=== PATIENT | female | born 1940 | race Caucasian/White ===

== ENCOUNTER → 2017-04-24 | Outpatient (CLI) | payer MEDICARE ==
[~2017-04-24] MED LIST: AEC81 PO; ALBU8.5H8 IH; CELE200 PO; CETI-101 PO; EQUATE ARTHRITIS PO; ERGO500014 PO; FLUO-125 PO; FLUT1AER IH; FOLI-74 PO; FURO20TA4 PO; HYDR-2132 PO; INSULIN PUMP SQ; LOSA100T29 PO; MECL-111 PO; MONT10TA21 PO; NEXIUM PO; PIND10TA2 PO; ROSU20TA PO; VITA150T PO
== END | disposition home or self-care (01) ==
LOC: SHCH 13:47
PROVIDERS: ATTEND Internal Medicine Cardiovascular Disease
DX: I87.2 Venous insufficiency (chronic) (peripheral) (principal)
CPT/HCPCS: 93970

== ENCOUNTER → 2017-07-10 | Outpatient (CLI) | payer MEDICARE | END | disposition home or self-care (01) | LOC: SHCH 09:06 | PROVIDERS: ATTEND Internal Medicine Cardiovascular Disease | DX: I27.20 Pulmonary hypertension, unspecified (principal); G47.30 Sleep apnea, unspecified | CPT/HCPCS: 93306 ==

== ENCOUNTER → 2019-02-23 | Outpatient (CLI) | payer MEDICARE ==
[~2019-02-23] MED LIST changes: -LOSA100T29 PO; +LOSA100T58 PO; -ROSU20TA PO; +ROSU20TA23 PO
== END | disposition home or self-care (01) ==
LOC: LAB 15:24
PROVIDERS: ATTEND Internal Medicine Gastroenterology
DX: R19.7 Diarrhea, unspecified (principal)
CPT/HCPCS: 87507

== ENCOUNTER → 2020-03-14 | Outpatient (CLI) | payer MEDICARE ==
[~2020-03-14] MED LIST changes: -CETI-101 PO; +CETI-89 PO; -FLUO-125 PO; +FLUO10CA23 PO; -MECL-111 PO; +MECL-160 PO
== END | disposition home or self-care (01) ==
LOC: RAH 14:30
PROVIDERS: ATTEND Physical Medicine & Rehabilitation
DX: M47.812 Spondylosis without myelopathy or radiculopathy, cervical region (principal); M48.02 Spinal stenosis, cervical region; M25.78 Osteophyte, vertebrae
CPT/HCPCS: 72141

== ENCOUNTER → 2020-03-21 | Outpatient (CLI) | payer MEDICARE | END | disposition home or self-care (01) | LOC: RAH 07:46 | PROVIDERS: ATTEND Internal Medicine Gastroenterology | DX: N28.1 Cyst of kidney, acquired (principal); K76.0 Fatty (change of) liver, not elsewhere classified; Z90.49 Acquired absence of other specified parts of digestive tract | CPT/HCPCS: 76700 ==

== ENCOUNTER → 2020-08-04 | Outpatient (CLI) | payer MEDICARE | END | disposition home or self-care (01) | LOC: RAH 13:03 | PROVIDERS: ATTEND Internal Medicine Critical Care Medicine | DX: J47.9 Bronchiectasis, uncomplicated (principal) | CPT/HCPCS: 71250 ==

== ENCOUNTER → 2020-10-06 | Outpatient (CLI) | payer MEDICARE | END | disposition home or self-care (01) | LOC: RAH 15:00 | PROVIDERS: ATTEND Psychiatry & Neurology Neurology | DX: I67.82 Cerebral ischemia (principal); G31.89 Other specified degenerative diseases of nervous system; R42 Dizziness and giddiness | CPT/HCPCS: 70450 ==

== ENCOUNTER → 2020-10-10 | Outpatient (CLI) | payer MEDICARE | END | disposition home or self-care (01) | LOC: RAH 14:44 | PROVIDERS: ATTEND Physical Medicine & Rehabilitation | DX: M79.601 Pain in right arm (principal); M25.511 Pain in right shoulder; Z96.611 Presence of right artificial shoulder joint | CPT/HCPCS: 73030; 73090 ==

== ENCOUNTER → 2020-10-19 | Outpatient (CLI) | payer MEDICARE ==
[~2020-10-19] MED LIST changes: +GADOTERATE MEGLUMINE 10 MMOL/20 ML VIAL IV ONE
== END | disposition home or self-care (01) ==
LOC: RAH 08:42
PROVIDERS: ATTEND Psychiatry & Neurology Neurology
DX: R42 Dizziness and giddiness (principal); D36.10 Benign neoplasm of peripheral nerves and autonomic nervous system, unspecified; I67.82 Cerebral ischemia
CPT/HCPCS: 70553; A9575

== ENCOUNTER 2021-01-12 12:17 | Inpatient (IN) | payer MEDICARE ==
[~2021-01-12] VITALS: Ht 160 cm; Wt 87.0 kg
[~2021-01-12 12:17] MED LIST changes: -GADOTERATE MEGLUMINE 10 MMOL/20 ML VIAL IV ONE
[2021-01-12] MEDS ORDERED: SOLU-MEDROL 125MG VIAL IVP ONE (13:00)
[2021-01-12 14:07] VITALS: BP 131/64
[2021-01-12 14:50] LABS: BASOPHILS % (AUTO) 0.8 % (0.0-5.0); EOSINOPHILS % (AUTO) 1.9 % (0.0-8.0); HEMATOCRIT 35.8 % (36-48); LYMPHOCYTES % (AUTO) 22.9 % (21.0-51.0); MEAN CORPUSCULAR HGB CONC 33.2 g/dL (32.0-36.0); MEAN CORPUSCULAR VOLUME 111.2 fL (79-99); MONOCYTES % (AUTO) 9.5 % (3.0-13.0); NEUTROPHILS % (AUTO) 64.4 % (40.0-77.0); PLATELET COUNT (AUTO) 322 K/uL (130-400); RED BLOOD CELL COUNT(AUTO) 3.22 MIL/uL (4.00-5.50); RED CELL DISTRIBUTION WIDTH 12.6 % (11.0-15.5); WHITE BLOOD COUNT (AUTO) 3.7 K/uL (4.8-10.8)
[2021-01-12 14:55] LABS: CREATININE 1.1 mg/dL (0.5-1.5); POTASSIUM 3.8 mmol/L (3.5-5.1)
[2021-01-12 15:00] LABS: ALBUMIN 3.3 g/dL (3.5-5.0); BILIRUBIN,TOTAL 0.7 mg/dL (0.2-1.0); TOTAL PROTEIN, SERUM 6.6 g/dL (6.0-8.3)
[2021-01-12 15:11] LABS: B-TYPE NATRIURETIC PEPTIDE 73 pg/mL (0-100)
[2021-01-12 15:24] LABS: APPEARANCE,URINE Clear (CLEAR); BILIRUBIN,URINE Negative (NEGATIVE); COLOR,URINE Yellow (YELLOW); GLUCOSE, URINE (UA) Negative (NEGATIVE); KETONES,URINE Trace mg/dL (NEGATIVE); LEUKOCYTE ESTERASE ,URINE Negative (NEGATIVE); NITRATE,URINE Negative (NEGATIVE); OCCULT BLOOD,URINE Negative (NEGATIVE); PH,URINE 5.5 (5.0-8.0); PROTEIN,URINE Negative (NEGATIVE)
[2021-01-12 15:35] LABS: ABG HCO3 26.3 mmol/L (21.0-28.0); ABG OXYGEN SATURATION 97.4 % (95.0-99.0); ABG PCO2 49 mmHg (32-45)
[2021-01-12] MEDS ORDERED: 0.9% NACL 250ML IVPB ONE (16:00)
[2021-01-12] MEDS ORDERED: CEFTRIAXONE 1G VIAL IVP ONE (16:00)
[2021-01-12] MEDS ORDERED: IPRATROPIUM/ALBUTEROL SULFATE 3 ML SOLUTION IH ONE (16:00)
[2021-01-12] MEDS ORDERED: AZITHROMYCIN 500MG VIAL IVPB ONE (16:00)
[2021-01-12] MEDS ORDERED: ZOLPIDEM TARTRATE 5 MG TAB PO PRN (16:30)
[2021-01-12] MEDS: CEFTRIAXONE 1G VIAL IV SCH (16:30)
[2021-01-12] MEDS ORDERED: ACETAMINOPHEN 325 MG TAB PO PRN ×2 (16:30)
[2021-01-12] MEDS ORDERED: ONDANSETRON 4MG INJ IV PRN (16:30)
[2021-01-12] MEDS ORDERED: LACTULOSE 20 GM/30 ML UDCUP PO PRN (16:30)
[2021-01-12] MEDS ORDERED: NITROGLYCERIN 0.4 MG SL TAB SL PRN (16:30)
[2021-01-12] MEDS ORDERED: HYDRALAZINE 20MG/ML VIAL IV PRN (16:30)
[2021-01-12] MEDS ORDERED: AZITHROMYCIN 500MG+NS 250ML 250 ML IV ONE (16:41)
[2021-01-12 17:20] LABS: HEMOGLOBIN A1C 6.7 % (4.0-6.0)
[2021-01-12] MEDS: FAMOTIDINE 20MG TAB PO SCH (17:21)
[2021-01-12 18:01] VITALS: BP 134/74
[2021-01-12] MEDS: IPRATROPIUM 0.5 MG/2.5 ML INH IH SCH ×2 (18:26→22:04)
[2021-01-12] MEDS: ALBUTEROL 0.083% 2.5 MG/3 ML INH IH SCH ×2 (18:26→22:04)
[2021-01-12] MEDS: INSULIN HUMULIN R 100 UNIT/ML 3ML SQ SCH ×2 (18:30→20:40)
[2021-01-12] MEDS: DOXYCYCLINE 100MG+NS 250ML 250 ML IV SCH (18:50)
[2021-01-12 19:28] VITALS: BP 144/74
[2021-01-12] MEDS: SOLU-MEDROL 40MG VIAL IVP SCH (20:39)
[2021-01-12] MEDS: INSULIN GLARGINE 100 UNITS/ML 10 ML VIAL SQ SCH (20:40)
[2021-01-13] VITALS (7 sets, daily range): BP systolic 124–163; BP diastolic 59–78
[2021-01-13] MEDS: IPRATROPIUM 0.5 MG/2.5 ML INH IH SCH ×5 (02:22→23:26)
[2021-01-13] MEDS: ALBUTEROL 0.083% 2.5 MG/3 ML INH IH SCH ×6 (02:22→23:26)
[2021-01-13] MEDS: DOXYCYCLINE 100MG+NS 250ML 250 ML IV SCH ×2 (05:22→18:03)
[2021-01-13] MEDS: INSULIN HUMULIN R 100 UNIT/ML 3ML SQ SCH ×6 (08:29→21:01)
[2021-01-13 08:47] LABS: HEMATOCRIT 37.1 % (36-48); LYMPHOCYTES % (AUTO) 7.3 % (21.0-51.0); MEAN CORPUSCULAR HEMOGLOBIN 36.7 pg (27.0-33.0); MEAN CORPUSCULAR HGB CONC 33.2 g/dL (32.0-36.0); MEAN CORPUSCULAR VOLUME 110.7 fL (79-99); MONOCYTES % (AUTO) 1.5 % (3.0-13.0); NEUTROPHILS % (AUTO) 90.7 % (40.0-77.0); PLATELET COUNT (AUTO) 299 K/uL (130-400); RED BLOOD CELL COUNT(AUTO) 3.35 MIL/uL (4.00-5.50); RED CELL DISTRIBUTION WIDTH 12.6 % (11.0-15.5); WHITE BLOOD COUNT (AUTO) 7.5 K/uL (4.8-10.8)
[2021-01-13 08:55] LABS: % IRON SATURATION 18.1 % (22-44)
[2021-01-13] MEDS ORDERED: LISINOPRIL 10 MG TABLET PO SCH (09:00)
[2021-01-13] MEDS: FAMOTIDINE 20MG TAB PO SCH (09:00)
[2021-01-13 09:12] LABS: B-TYPE NATRIURETIC PEPTIDE 199 pg/mL (0-100)
[2021-01-13 09:29] LABS: ALANINE AMINOTRANSFERASE 40 U/L (12-78); ALBUMIN 3.4 g/dL (3.5-5.0); ASPARTATE AMINOTRANSFERASE 59 U/L (10-37); BILIRUBIN,TOTAL 0.6 mg/dL (0.2-1.0); CARBON DIOXIDE 28 mmol/L (21-32); CHLORIDE 105 mmol/L (101-111); CREATININE 0.7 mg/dL (0.5-1.5); GLOMERULAR FILTR. RATE CALC 86 mL/min (>60); GLUCOSE,RANDOM 380 mg/dL (70-105); SODIUM SERUM 140 mmol/L (136-145); THYROID STIMULATING HORMONE 0.41 uIU/mL (0.36-3.74); UREA NITROGEN, BLOOD 18 mg/dL (7-18)
[2021-01-13 10:39] LABS: ABG BASE EXCESS 0.1 mmol/L (-2.0-3.0); ABG HCO3 24.4 mmol/L (21.0-28.0); ABG OXYGEN SATURATION 97.5 % (95.0-99.0); ABG PCO2 39 mmHg (32-45)
[2021-01-13] MEDS: ENOXAPARIN SODIUM 40 MG/0.4 ML SYRINGE SQ SCH (13:09)
[2021-01-13] MEDS: SOLU-MEDROL 40MG VIAL IVP SCH ×2 (13:09→20:51)
[2021-01-13] MEDS ORDERED: GUAIFENESIN-DM 200/20 MG 10 ML PO PRN (13:30)
[2021-01-13] MEDS ORDERED: LOSA25TA41 PO (15:18)
[2021-01-13] MEDS ORDERED: METH-811 PO (15:18)
[2021-01-13] MEDS ORDERED: INSNOV SQ (15:18)
[2021-01-13] MEDS ORDERED: LIRA0.6P SQ (15:18)
[2021-01-13] MEDS ORDERED: ROSU20TA31 PO (15:18)
[2021-01-13] MEDS ORDERED: OMEP40CA21 PO (15:18)
[2021-01-13] MEDS ORDERED: CELE-84 PO (15:18)
[2021-01-13] MEDS ORDERED: MONT10TA32 PO (15:18)
[2021-01-13] MEDS ORDERED: HYDR500C2 PO (15:18)
[2021-01-13] MEDS ORDERED: FURO40TA5 PO (15:18)
[2021-01-13] MEDS ORDERED: FLUO10TA3 PO (15:18)
[2021-01-13] MEDS ORDERED: ERGO500093 PO (15:18)
[2021-01-13] MEDS ORDERED: CETI10TA57 PO (15:18)
[2021-01-13] MEDS ORDERED: ASPI-1197 PO (15:18)
[2021-01-13] MEDS ORDERED: CARV6.25 PO (15:18)
[2021-01-13] MEDS: CEFTRIAXONE 1G VIAL IV SCH (18:03)
[2021-01-13] MEDS: MONTELUKAST SODIUM 10 MG TAB PO SCH (18:06)
[2021-01-13] MEDS ORDERED: LIDOCAINE 5% TOPICAL PATCH TP SCH (19:00)
[2021-01-13] MEDS: BUDESONIDE 0.5 MG/2 ML INH IH SCH (19:18)
[2021-01-13] MEDS ORDERED: IOHEXOL 350 MG/ML 100ML INFUS..BTL IV ONE (20:34)
[2021-01-13] MEDS: ATORVASTATIN 40 MG TABLET PO SCH (20:49)
[2021-01-13] MEDS: CARVEDILOL 3.125 MG TABLET PO SCH (20:50)
[2021-01-13] MEDS: FUROSEMIDE 40 MG TABLET PO SCH (20:51)
[2021-01-13] MEDS: INSULIN GLARGINE 100 UNITS/ML 10 ML VIAL SQ SCH (21:01)
[2021-01-14] MEDS: IPRATROPIUM 0.5 MG/2.5 ML INH IH SCH ×5 (02:56→22:50)
[2021-01-14] MEDS: ALBUTEROL 0.083% 2.5 MG/3 ML INH IH SCH ×5 (02:57→22:50)
[2021-01-14 03:46] VITALS: BP 152/74
[2021-01-14] MEDS: DOXYCYCLINE 100MG+NS 250ML 250 ML IV SCH ×2 (05:01→16:19)
[2021-01-14 06:16] LABS: BASOPHILS % (AUTO) 0.1 % (0.0-5.0); HEMATOCRIT 38.8 % (36-48); LYMPHOCYTES % (AUTO) 7.2 % (21.0-51.0); MEAN CORPUSCULAR HEMOGLOBIN 36.4 pg (27.0-33.0); MEAN CORPUSCULAR HGB CONC 32.5 g/dL (32.0-36.0); MEAN CORPUSCULAR VOLUME 112.1 fL (79-99); MONOCYTES % (AUTO) 2.5 % (3.0-13.0); NEUTROPHILS % (AUTO) 89.6 % (40.0-77.0); PLATELET COUNT (AUTO) 378 K/uL (130-400); RED BLOOD CELL COUNT(AUTO) 3.46 MIL/uL (4.00-5.50); RED CELL DISTRIBUTION WIDTH 12.7 % (11.0-15.5); WHITE BLOOD COUNT (AUTO) 10.1 K/uL (4.8-10.8)
[2021-01-14 06:29] LABS: MAGNESIUM 2.1 mg/dL (1.80-2.40); POTASSIUM 4.9 mmol/L (3.5-5.1)
[2021-01-14] MEDS: INSULIN HUMULIN R 100 UNIT/ML 3ML SQ SCH ×4 (06:35→22:25)
[2021-01-14] MEDS: BUDESONIDE 0.5 MG/2 ML INH IH SCH ×2 (06:42→19:05)
[2021-01-14 07:10] VITALS: BP 109/41
[2021-01-14] MEDS ORDERED: INSULIN HUMULIN R 100 UNIT/ML 3ML SQ SCH ×3 (07:30→17:00)
[2021-01-14] MEDS: LOSARTAN 25 MG TABLET PO SCH (09:00)
[2021-01-14] MEDS ORDERED: MONTELUKAST SODIUM 10 MG TAB PO SCH (09:00)
[2021-01-14] MEDS: CARVEDILOL 3.125 MG TABLET PO SCH ×2 (09:00→22:18)
[2021-01-14] MEDS: ENOXAPARIN SODIUM 40 MG/0.4 ML SYRINGE SQ SCH (09:41)
[2021-01-14] MEDS: FAMOTIDINE 20MG TAB PO SCH (09:44)
[2021-01-14] MEDS: MONTELUKAST SODIUM 10 MG TAB PO SCH (09:44)
[2021-01-14] MEDS: FLUOXETINE HCL 10 MG CAPSULE PO SCH (09:44)
[2021-01-14] MEDS: CELECOXIB 200 MG CAP PO SCH (09:44)
[2021-01-14] MEDS: FUROSEMIDE 40 MG TABLET PO SCH ×2 (09:45→22:19)
[2021-01-14] MEDS: CETIRIZINE HCL 5 MG TABLET PO SCH (09:45)
[2021-01-14] MEDS: HYDROXYUREA 500 MG CAP PO SCH (09:45)
[2021-01-14] MEDS: SOLU-MEDROL 40MG VIAL IVP SCH (09:46)
[2021-01-14] MEDS: ASPIRIN 81MG CHEW TAB PO SCH (09:46)
[2021-01-14] MEDS: INSULIN GLARGINE 100 UNITS/ML 10 ML VIAL SQ SCH ×2 (10:03→22:26)
[2021-01-14 10:48] VITALS: BP 156/63
[2021-01-14 15:00] VITALS: BP 143/67
[2021-01-14] MEDS: CEFTRIAXONE 1G VIAL IV SCH (16:19)
[2021-01-14 20:02] VITALS: BP 135/55
[2021-01-14] MEDS: PREDNISONE 20 MG TABLET PO SCH (22:19)
[2021-01-14] MEDS: ATORVASTATIN 40 MG TABLET PO SCH (22:20)
[2021-01-15] VITALS (7 sets, daily range): BP systolic 106–171; BP diastolic 61–87
[2021-01-15] MEDS: IPRATROPIUM 0.5 MG/2.5 ML INH IH SCH ×7 (02:46→21:44)
[2021-01-15] MEDS: ALBUTEROL 0.083% 2.5 MG/3 ML INH IH SCH ×7 (02:46→21:44)
[2021-01-15] MEDS: DOXYCYCLINE 100MG+NS 250ML 250 ML IV SCH ×2 (04:47→15:48)
[2021-01-15] MEDS: BUDESONIDE 0.5 MG/2 ML INH IH SCH ×2 (06:34→18:39)
[2021-01-15] MEDS: INSULIN HUMULIN R 100 UNIT/ML 3ML SQ SCH ×8 (07:04→21:01)
[2021-01-15] MEDS: INSULIN GLARGINE 100 UNITS/ML 10 ML VIAL SQ SCH ×2 (07:46→20:58)
[2021-01-15] MEDS: CETIRIZINE HCL 5 MG TABLET PO SCH (09:08)
[2021-01-15] MEDS: CELECOXIB 200 MG CAP PO SCH (09:08)
[2021-01-15] MEDS: MONTELUKAST SODIUM 10 MG TAB PO SCH (09:08)
[2021-01-15] MEDS: ASPIRIN 81MG CHEW TAB PO SCH (09:08)
[2021-01-15] MEDS: PREDNISONE 20 MG TABLET PO SCH ×2 (09:08→20:53)
[2021-01-15] MEDS: FAMOTIDINE 20MG TAB PO SCH (09:09)
[2021-01-15] MEDS: FUROSEMIDE 40 MG TABLET PO SCH ×2 (09:09→20:53)
[2021-01-15] MEDS: CARVEDILOL 3.125 MG TABLET PO SCH ×2 (09:09→20:53)
[2021-01-15] MEDS: LOSARTAN 25 MG TABLET PO SCH (09:09)
[2021-01-15] MEDS: HYDROXYUREA 500 MG CAP PO SCH (09:09)
[2021-01-15] MEDS: FLUOXETINE HCL 10 MG CAPSULE PO SCH (09:09)
[2021-01-15] MEDS: ENOXAPARIN SODIUM 40 MG/0.4 ML SYRINGE SQ SCH (09:10)
[2021-01-15] MEDS: CEFTRIAXONE 1G VIAL IV SCH (15:48)
[2021-01-15] MEDS: ATORVASTATIN 40 MG TABLET PO SCH (20:53)
[2021-01-16] MEDS: ALBUTEROL 0.083% 2.5 MG/3 ML INH IH SCH ×6 (01:51→22:05)
[2021-01-16] MEDS: IPRATROPIUM 0.5 MG/2.5 ML INH IH SCH ×6 (01:51→22:05)
[2021-01-16 03:58] VITALS: BP 119/47
[2021-01-16] MEDS: DOXYCYCLINE 100MG+NS 250ML 250 ML IV SCH ×2 (05:13→16:28)
[2021-01-16] MEDS: BUDESONIDE 0.5 MG/2 ML INH IH SCH ×2 (06:23→18:47)
[2021-01-16] MEDS: INSULIN HUMULIN R 100 UNIT/ML 3ML SQ SCH ×7 (07:30→19:37)
[2021-01-16 07:58] VITALS: BP 158/76
[2021-01-16] MEDS: FLUOXETINE HCL 10 MG CAPSULE PO SCH (09:38)
[2021-01-16] MEDS: CETIRIZINE HCL 5 MG TABLET PO SCH (09:38)
[2021-01-16] MEDS: PREDNISONE 20 MG TABLET PO SCH ×2 (09:38→19:28)
[2021-01-16] MEDS: MONTELUKAST SODIUM 10 MG TAB PO SCH (09:38)
[2021-01-16] MEDS: HYDROXYUREA 500 MG CAP PO SCH (09:38)
[2021-01-16] MEDS: FAMOTIDINE 20MG TAB PO SCH (09:38)
[2021-01-16] MEDS: CARVEDILOL 3.125 MG TABLET PO SCH ×2 (09:39→19:30)
[2021-01-16] MEDS: LOSARTAN 25 MG TABLET PO SCH (09:39)
[2021-01-16] MEDS: ASPIRIN 81MG CHEW TAB PO SCH (09:39)
[2021-01-16] MEDS: ENOXAPARIN SODIUM 40 MG/0.4 ML SYRINGE SQ SCH (09:40)
[2021-01-16] MEDS: CELECOXIB 200 MG CAP PO SCH (09:50)
[2021-01-16] MEDS: INSULIN GLARGINE 100 UNITS/ML 10 ML VIAL SQ SCH ×2 (10:18→19:38)
[2021-01-16 12:04] VITALS: BP 139/70
[2021-01-16] MEDS: FUROSEMIDE 40 MG TABLET PO SCH ×2 (14:22→19:29)
[2021-01-16 16:00] VITALS: BP 145/53
[2021-01-16] MEDS: CEFTRIAXONE 1G VIAL IV SCH (16:28)
[2021-01-16] MEDS: ATORVASTATIN 40 MG TABLET PO SCH (19:29)
[2021-01-16 20:00] VITALS: BP 141/76
[2021-01-17] VITALS: BP 150/74
[2021-01-17] MEDS: IPRATROPIUM 0.5 MG/2.5 ML INH IH SCH ×4 (02:08→18:59)
[2021-01-17] MEDS: ALBUTEROL 0.083% 2.5 MG/3 ML INH IH SCH ×4 (02:08→18:59)
[2021-01-17] MEDS: DOXYCYCLINE 100MG+NS 250ML 250 ML IV SCH ×2 (03:17→17:11)
[2021-01-17] MEDS: INSULIN HUMULIN R 100 UNIT/ML 3ML SQ SCH ×6 (05:35→17:07)
[2021-01-17 06:08] LABS: BASOPHILS % (AUTO) 0.3 % (0.0-5.0); HEMATOCRIT 42.4 % (36-48); LYMPHOCYTES % (AUTO) 22.3 % (21.0-51.0); MEAN CORPUSCULAR HEMOGLOBIN 36.2 pg (27.0-33.0); MEAN CORPUSCULAR HGB CONC 33.3 g/dL (32.0-36.0); MEAN CORPUSCULAR VOLUME 108.7 fL (79-99); MONOCYTES % (AUTO) 6.5 % (3.0-13.0); NEUTROPHILS % (AUTO) 69.9 % (40.0-77.0); PLATELET COUNT (AUTO) 410 K/uL (130-400); RED CELL DISTRIBUTION WIDTH 12.4 % (11.0-15.5); WHITE BLOOD COUNT (AUTO) 7.9 K/uL (4.8-10.8)
[2021-01-17 06:17] LABS: CREATININE 0.9 mg/dL (0.5-1.5); POTASSIUM 3.1 mmol/L (3.5-5.1)
[2021-01-17] MEDS: BUDESONIDE 0.5 MG/2 ML INH IH SCH ×2 (06:44→18:58)
[2021-01-17] MEDS: INSULIN GLARGINE 100 UNITS/ML 10 ML VIAL SQ SCH (07:48)
[2021-01-17] MEDS: PREDNISONE 20 MG TABLET PO SCH (07:56)
[2021-01-17] MEDS: CELECOXIB 200 MG CAP PO SCH (07:56)
[2021-01-17] MEDS: FAMOTIDINE 20MG TAB PO SCH (07:56)
[2021-01-17] MEDS: CETIRIZINE HCL 5 MG TABLET PO SCH (07:56)
[2021-01-17] MEDS: ASPIRIN 81MG CHEW TAB PO SCH (07:56)
[2021-01-17] MEDS: LOSARTAN 25 MG TABLET PO SCH (07:56)
[2021-01-17] MEDS: FUROSEMIDE 40 MG TABLET PO SCH (07:56)
[2021-01-17] MEDS: MONTELUKAST SODIUM 10 MG TAB PO SCH (07:56)
[2021-01-17] MEDS: FLUOXETINE HCL 10 MG CAPSULE PO SCH (07:56)
[2021-01-17] MEDS: ENOXAPARIN SODIUM 40 MG/0.4 ML SYRINGE SQ SCH (07:57)
[2021-01-17 08:00] VITALS: BP 146/74
[2021-01-17] MEDS: CARVEDILOL 3.125 MG TABLET PO SCH (08:01)
[2021-01-17] MEDS: HYDROXYUREA 500 MG CAP PO SCH (11:50)
[2021-01-17 12:00] VITALS: BP 112/67
[2021-01-17] MEDS ORDERED: KCL 20 MEQ ERTAB PO SCH (12:00)
[2021-01-17] MEDS ORDERED: KCL 20 MEQ ERTAB PO ONE (12:01)
[2021-01-17 16:00] VITALS: BP 123/59
[2021-01-18] MEDS ORDERED: PANTOPRAZOLE 40 MG TAB DR PO SCH (09:00)
== END 2021-01-17 19:15 | DRG 189 ==
LOC: EDH 12:17 → EDHIP 16:27 → 4BH 01-13 08:34
PROVIDERS: ADMIT Internal Medicine; ATTEND Internal Medicine
PROC: 5A09357 Assistance with Respiratory Ventilation, Less than 24 Consecutive Hours, Continuous Positive Airway Pressure (ICD-10-PCS; principal; 2021-01-12)
PROC: 5A09357 Assistance with Respiratory Ventilation, Less than 24 Consecutive Hours, Continuous Positive Airway Pressure (ICD-10-PCS; 2021-01-13)
PROC: 5A09357 Assistance with Respiratory Ventilation, Less than 24 Consecutive Hours, Continuous Positive Airway Pressure (ICD-10-PCS; 2021-01-15)
PROC: 5A09357 Assistance with Respiratory Ventilation, Less than 24 Consecutive Hours, Continuous Positive Airway Pressure (ICD-10-PCS; 2021-01-16)
PROC: 5A09357 Assistance with Respiratory Ventilation, Less than 24 Consecutive Hours, Continuous Positive Airway Pressure (ICD-10-PCS; 2021-01-17)
DX: J96.02 Acute respiratory failure with hypercapnia (principal); J44.1 Chronic obstructive pulmonary disease with (acute) exacerbation; E87.2 Acidosis; J98.11 Atelectasis; K21.9 Gastro-esophageal reflux disease without esophagitis; I27.20 Pulmonary hypertension, unspecified; E11.65 Type 2 diabetes mellitus with hyperglycemia; E66.01 Morbid (severe) obesity due to excess calories; Z90.710 Acquired absence of both cervix and uterus; I10 Essential (primary) hypertension; Z20.822 Contact with and (suspected) exposure to COVID-19; D72.810 Lymphocytopenia; G47.33 Obstructive sleep apnea (adult) (pediatric); Z96.41 Presence of insulin pump (external) (internal); T38.0X5A Adverse effect of glucocorticoids and synthetic analogues, initial encounter; E78.00 Pure hypercholesterolemia, unspecified; K76.0 Fatty (change of) liver, not elsewhere classified; Z99.81 Dependence on supplemental oxygen; Z68.35 Body mass index [BMI] 35.0-35.9, adult; Y92.89 Other specified places as the place of occurrence of the external cause; Z79.4 Long term (current) use of insulin; Z87.891 Personal history of nicotine dependence; Z87.01 Personal history of pneumonia (recurrent); Z90.49 Acquired absence of other specified parts of digestive tract; Z98.49 Cataract extraction status, unspecified eye; Z88.6 Allergy status to analgesic agent; Z91.040 Latex allergy status; Z91.013 Allergy to seafood; Z88.8 Allergy status to other drugs, medicaments and biological substances; Z91.018 Allergy to other foods; Z82.49 Family history of ischemic heart disease and other diseases of the circulatory system; Z80.9 Family history of malignant neoplasm, unspecified
CPT/HCPCS: 36415; 36600; 71045; 71275; 80048; 80053; 81003; 82270; 82550; 82607; 82728; 82746; 82803; 82948; 83036; 83540; 83550; 83735; 83874; 83880; 84145; 84443; 84484; 85025; 85045; 85378; 86140; 87040; 87635; 87804; 93005; 93970; 94640; 94660; 97039; C9803; G0378; J0456; J0696; J1650; J1815; J2920; J2930; J3490; Q9967

== ENCOUNTER 2021-06-20 02:46 | Emergency (ER) | payer MEDICARE ==
[~2021-06-20] VITALS: Ht 160 cm; Wt 83.0 kg
[~2021-06-20 02:46] MED LIST changes: -AEC81 PO; -ALBU8.5H8 IH; +ASPI-1197 PO; +CARV6.25 PO; +CELE-84 PO; -CELE200 PO; -CETI-89 PO; +CETI10TA57 PO; -EQUATE ARTHRITIS PO; -ERGO500014 PO; +ERGO500093 PO; -FLUO10CA23 PO; +FLUO10TA3 PO; -FLUT1AER IH; -FOLI-74 PO; -FURO20TA4 PO; +FURO40TA5 PO; -HYDR-2132 PO; +HYDR500C2 PO; +INSNOV SQ; -INSULIN PUMP SQ; +LIRA0.6P SQ; -LOSA100T58 PO; +LOSA25TA41 PO; -MECL-160 PO; +METH-811 PO; +MONT-39 PO; -MONT10TA21 PO; -NEXIUM PO; +OMEP40CA21 PO; -PIND10TA2 PO; -ROSU20TA23 PO; +ROSU20TA31 PO; -VITA150T PO
[2021-06-20 11:28] LABS: BASOPHILS % (AUTO) 0.3 % (0.0-5.0); EOSINOPHILS % (AUTO) 0.8 % (0.0-8.0); HEMATOCRIT 42.3 % (36-48); LYMPHOCYTES % (AUTO) 29.6 % (21.0-51.0); MEAN CORPUSCULAR HEMOGLOBIN 35.2 pg (27.0-33.0); MEAN CORPUSCULAR HGB CONC 32.2 g/dL (32.0-36.0); MEAN CORPUSCULAR VOLUME 109.6 fL (79-99); MONOCYTES % (AUTO) 7.5 % (3.0-13.0); NEUTROPHILS % (AUTO) 61.3 % (40.0-77.0); PLATELET COUNT (AUTO) 479 K/uL (130-400); RED BLOOD CELL COUNT(AUTO) 3.86 MIL/uL (4.00-5.50); RED CELL DISTRIBUTION WIDTH 13.7 % (11.0-15.5)
[2021-06-20] MEDS ORDERED: KETOROLAC 30MG VIAL (30MG/ML) IM ONE (11:30)
[2021-06-20 11:36] LABS: CREATININE 0.8 mg/dL (0.5-1.5); POTASSIUM 4.3 mmol/L (3.5-5.1)
[2021-06-20] MEDS ORDERED: DICL50TA9 PO (12:25)
[2021-06-20 12:39] VITALS: BP 153/74
== END 2021-06-20 12:41 | disposition home or self-care (01) ==
LOC: EDH 02:48
DX: G44.209 Tension-type headache, unspecified, not intractable (principal); I10 Essential (primary) hypertension; E11.9 Type 2 diabetes mellitus without complications; E78.00 Pure hypercholesterolemia, unspecified; K21.9 Gastro-esophageal reflux disease without esophagitis; Z79.1 Long term (current) use of non-steroidal anti-inflammatories (NSAID); Z79.4 Long term (current) use of insulin; Z79.82 Long term (current) use of aspirin; Z79.899 Other long term (current) drug therapy
CPT/HCPCS: 36415; 70450; 80048; 85025; 96372; 99284; J1885

== ENCOUNTER → 2021-07-28 | Outpatient (CLI) | payer MEDICARE ==
[~2021-07-28] MED LIST changes: +DICL50TA9 PO
== END | disposition home or self-care (01) ==
LOC: RAH 14:25
PROVIDERS: ATTEND Internal Medicine
DX: S59.912D Unspecified injury of left forearm, subsequent encounter (principal); X58.XXXD Exposure to other specified factors, subsequent encounter
CPT/HCPCS: 73090

== ENCOUNTER 2021-10-18 10:05 | Emergency (ER) | payer MEDICARE ==
[~2021-10-18] VITALS: Ht 160 cm; Wt 85.3 kg
[2021-10-18 10:25] VITALS: BP 155/68
[2021-10-18 10:28] LABS: BASOPHILS % (AUTO) 0.6 % (0.0-5.0); EOSINOPHILS % (AUTO) 1.3 % (0.0-8.0); LYMPHOCYTES % (AUTO) 43.9 % (21.0-51.0); MEAN CORPUSCULAR HEMOGLOBIN 37.1 pg (27.0-33.0); MEAN CORPUSCULAR HGB CONC 34.4 g/dL (32.0-36.0); MEAN CORPUSCULAR VOLUME 107.8 fL (79-99); MONOCYTES % (AUTO) 6.5 % (3.0-13.0); NEUTROPHILS % (AUTO) 47.1 % (40.0-77.0); PLATELET COUNT (AUTO) 381 K/uL (130-400); RED BLOOD CELL COUNT(AUTO) 3.34 MIL/uL (4.00-5.50); RED CELL DISTRIBUTION WIDTH 13.2 % (11.0-15.5); WHITE BLOOD COUNT (AUTO) 4.8 K/uL (4.8-10.8)
[2021-10-18 10:39] LABS: POTASSIUM 3.3 mmol/L (3.5-5.1)
[2021-10-18 10:43] LABS: ALBUMIN 3.4 g/dL (3.5-5.0); BILIRUBIN,TOTAL 0.6 mg/dL (0.2-1.0); TOTAL PROTEIN, SERUM 6.7 g/dL (6.0-8.3)
[2021-10-18] MEDS ORDERED: POTASSIUM BICARB/CIT AC 25 MEQ TABLET.EFF PO ONE (11:00)
[2021-10-18] MEDS ORDERED: ACETAMINOPHEN 500 MG TABLET ONE (11:20)
[2021-10-18] MEDS ORDERED: ACETAMINOPHEN 500 MG TABLET PO ONE (11:30)
== END 2021-10-18 12:02 | disposition home or self-care (01) ==
LOC: EDH 10:05
DX: S86.911A Strain of unspecified muscle(s) and tendon(s) at lower leg level, right leg, initial encounter (principal); S00.83XA Contusion of other part of head, initial encounter; E87.6 Hypokalemia; E11.9 Type 2 diabetes mellitus without complications; K21.9 Gastro-esophageal reflux disease without esophagitis; E78.00 Pure hypercholesterolemia, unspecified; I10 Essential (primary) hypertension; Z88.8 Allergy status to other drugs, medicaments and biological substances; Z91.040 Latex allergy status; Z91.018 Allergy to other foods; Z91.048 Other nonmedicinal substance allergy status; Z79.899 Other long term (current) drug therapy; Z79.82 Long term (current) use of aspirin; Z98.890 Other specified postprocedural states; Z60.2 Problems related to living alone; W18.39XA Other fall on same level, initial encounter; Y93.89 Activity, other specified; Y92.89 Other specified places as the place of occurrence of the external cause; Y99.8 Other external cause status
CPT/HCPCS: 36415; 70450; 70486; 72125; 73562; 80053; 85025

== ENCOUNTER → 2022-01-30 | Outpatient (CLI) | payer MEDICARE ==
[~2022-01-30] MED LIST changes: +DOCU-116 PO; +PRED50TA2 PO
== END | disposition home or self-care (01) ==
LOC: RAH 16:24
PROVIDERS: ATTEND Internal Medicine Critical Care Medicine
DX: Q79.1 Other congenital malformations of diaphragm (principal)
CPT/HCPCS: 71046

== ENCOUNTER → 2022-10-02 | Outpatient (CLI) | payer MEDICARE, OTHER ==
[~2022-10-02] MED LIST changes: -FLUO10TA3 PO; +FLUO10TA35 PO; -ROSU20TA31 PO; +ROSU20TA73 PO
[2022-10-02 16:25] LABS: BASOPHILS % (AUTO) 0.6 % (0.0-5.0); LYMPHOCYTES % (AUTO) 23.2 % (21.0-51.0); MEAN CORPUSCULAR HEMOGLOBIN 37.1 pg (27.0-33.0); MEAN CORPUSCULAR HGB CONC 32.6 g/dL (32.0-36.0); MEAN CORPUSCULAR VOLUME 113.8 fL (79-99); MONOCYTES % (AUTO) 6.8 % (3.0-13.0); NEUTROPHILS % (AUTO) 67.6 % (40.0-77.0); PLATELET COUNT (AUTO) 632 K/uL (130-400); RED BLOOD CELL COUNT(AUTO) 3.34 MIL/uL (4.00-5.50); RED CELL DISTRIBUTION WIDTH 13.7 % (11.0-15.5); WHITE BLOOD COUNT (AUTO) 8.3 K/uL (4.8-10.8)
[2022-10-02 16:39] LABS: CREATININE 1.1 mg/dL (0.5-1.5); POTASSIUM 3.4 mmol/L (3.5-5.1)
== END | disposition home or self-care (01) ==
LOC: LAB 14:38
PROVIDERS: ATTEND Internal Medicine Cardiovascular Disease
DX: I10 Essential (primary) hypertension (principal)
CPT/HCPCS: 36415; 80048; 85025

== ENCOUNTER → 2022-11-09 | Outpatient (CLI) | payer OTHER ==
[2022-11-09 12:18] LABS: BASOPHILS % (AUTO) 0.7 % (0.0-5.0); EOSINOPHILS % (AUTO) 1.3 % (0.0-8.0); HEMATOCRIT 39.4 % (36-48); LYMPHOCYTES % (AUTO) 29.2 % (21.0-51.0); MEAN CORPUSCULAR HEMOGLOBIN 37.4 pg (27.0-33.0); MEAN CORPUSCULAR HGB CONC 33.2 g/dL (32.0-36.0); MEAN CORPUSCULAR VOLUME 112.6 fL (79-99); MONOCYTES % (AUTO) 6.6 % (3.0-13.0); NEUTROPHILS % (AUTO) 61.5 % (40.0-77.0); PLATELET COUNT (AUTO) 554 K/uL (130-400); RED CELL DISTRIBUTION WIDTH 13.2 % (11.0-15.5); WHITE BLOOD COUNT (AUTO) 5.4 K/uL (4.8-10.8)
[2022-11-09 12:34] LABS: CREATININE 0.9 mg/dL (0.5-1.5); POTASSIUM 4.7 mmol/L (3.5-5.1)
== END | disposition home or self-care (01) ==
LOC: LAB 09:08
PROVIDERS: ATTEND Internal Medicine Cardiovascular Disease
DX: I10 Essential (primary) hypertension (principal)
CPT/HCPCS: 36415; 80048; 85025

== ENCOUNTER → 2024-02-04 | Outpatient (CLI) | payer OTHER ==
[~2024-02-04] MED LIST changes: +CELE-125 PO; -CELE-84 PO; +MECL-226 PO; -ROSU20TA73 PO; +ROSU20TA98 PO
== END | disposition home or self-care (01) ==
LOC: SHCH 08:14
PROVIDERS: ATTEND Internal Medicine Cardiovascular Disease
DX: I08.3 Combined rheumatic disorders of mitral, aortic and tricuspid valves (principal); R06.00 Dyspnea, unspecified; E11.9 Type 2 diabetes mellitus without complications; E78.5 Hyperlipidemia, unspecified; I10 Essential (primary) hypertension
CPT/HCPCS: 93306

== ENCOUNTER → 2024-02-10 | Outpatient (CLI) | payer OTHER | END | disposition home or self-care (01) | LOC: RAH 07:50 | PROVIDERS: ATTEND Orthopaedic Surgery | DX: M19.012 Primary osteoarthritis, left shoulder (principal) | CPT/HCPCS: 73221 ==

== ENCOUNTER → 2024-03-03 | Outpatient (CLI) | payer OTHER ==
--- NOTE | 2024-03-03 13:31 | HMCIMG ---
LUMBAR W FLEXION/EXTENSION REASON: LOW BACK PAIN, FALL. COMPARISON: None TECHNIQUE: 4 images of lumbar spine were obtained including flexion and extension views. FINDINGS: There is levoscoliosis of lumbar spine. Postop changes are seen with disc fusion at L4 and L5 levels. Vascular calcifications are seen. No loss of vertebral height is seen. There are degenerative changes with lumbar spine spondylosis. IMPRESSION: Findings as described above.
== END | disposition home or self-care (01) ==
LOC: RAH 11:34
PROVIDERS: ATTEND Physical Medicine & Rehabilitation
DX: M47.816 Spondylosis without myelopathy or radiculopathy, lumbar region (principal); M41.86 Other forms of scoliosis, lumbar region; M54.51 Vertebrogenic low back pain; Z91.81 History of falling; Z98.890 Other specified postprocedural states
CPT/HCPCS: 72114

== ENCOUNTER → 2024-06-22 | Outpatient (CLI) | payer OTHER ==
[2024-06-22 16:39] LABS: MAGNESIUM 1.5 mg/dL (1.80-2.40); THYROID STIMULATING HORMONE 1.68 uIU/mL (0.36-3.74)
== END | disposition home or self-care (01) ==
LOC: LAB 11:20
PROVIDERS: ATTEND Internal Medicine Cardiovascular Disease
DX: I10 Essential (primary) hypertension (principal); E55.9 Vitamin D deficiency, unspecified; R53.83 Other fatigue
CPT/HCPCS: 36415; 82306; 83735; 84443

== ENCOUNTER → 2024-06-22 | Outpatient (CLI) | payer OTHER ==
--- NOTE | 2024-06-22 14:28 | HMCIMG ---
CT HEART SAVER PROMOTIONAL HISTORY: Calcium scoring COMPARISON: None TECHNIQUE: Computed tomography of the heart was performed with ECG gating and suspended respiration. Postprocessing was performed on a computer workstation to obtain diastolic phase images, determine calcium score and provide a quantitative assessment of extent of disease. This CT included only the heart. HeartSaver score is 81. Please see cardiac calcium score report. The available CT chest images show no acute finding. CT was performed with one or more following dose reduction techniques: automated exposure control, adjustment of the mA and kv according to patient's size, or use of a iterative reconstruction technique.
== END | disposition home or self-care (01) ==
LOC: RAH 12:16
PROVIDERS: ATTEND Internal Medicine Cardiovascular Disease
DX: Z13.6 Encounter for screening for cardiovascular disorders (principal)
CPT/HCPCS: 75571

== ENCOUNTER → 2024-06-30 | Outpatient (CLI) | payer OTHER | END | disposition home or self-care (01) | LOC: LAB 11:02 | PROVIDERS: ATTEND Internal Medicine Cardiovascular Disease | DX: I10 Essential (primary) hypertension (principal) | CPT/HCPCS: 36415; 83735 ==

== ENCOUNTER → 2024-07-07 | Outpatient (CLI) | payer OTHER | END | disposition home or self-care (01) | LOC: LAB 10:42 | PROVIDERS: ATTEND Internal Medicine Cardiovascular Disease | DX: I10 Essential (primary) hypertension (principal) | CPT/HCPCS: 36415; 83735 ==

== ENCOUNTER → 2024-11-09 | Outpatient (CLI) | payer OTHER ==
--- NOTE | 2024-11-09 12:47 | HMCIMG ---
EXAM: CT Cervical Spine Without IV contrast. CLINICAL HISTORY: Disease of spinal cord, unspecified TECHNIQUE: Axial computed tomography images of the cervical spine without intravenous contrast. Sagittal and coronal reformatted images were generated. COMPARISON: Study dated 2021 FINDINGS: ALIGNMENT: Cervical lordosis is straightened. DEGENERATIVE CHANGES: There is an anterior cervical discectomy and fusion (ACDF) at C4-C7 levels with screws and, anterior plate. Orthopedic hardware remains in situ. Osteoarthritic changes seen in C1 and C2 vertebrae with canal stenosis. Facetal joint arthropathy is seen at multiple levels. Marginal osteophytes are seen in cervical vertebral bodies. SOFT TISSUES: The prevertebral soft tissues are within normal limits.BONES: No acute fracture or aggressive appearing osseous lesion. IMPRESSION: 1. No acute osseous injury. 2. Prior ACDF at C4-C7 with hardware in place. 3. Multilevel cervical spondylosis with canal stenosis at C1-C2. /[place]
--- NOTE | 2024-11-10 04:19 | HMCIMG ---
EXAM: CR Thoracic Spine, 2 views. CLINICAL HISTORY: Myelopathy disease. COMPARISON: X-ray scoliosis series dated 05/15/2007 FINDINGS: Age-indeterminate anterior wedge compression fracture of the T12 vertebral body with about 40% height reduction. The remaining vertebral body heights are maintained. Mild kyphoscoliosis of the thoracic spine. Mild osteopenia. Moderate spondylosis and degenerative disc space narrowing at multiple levels. Metal implants in the cervicothoracic and lower lumbar spine. Mild atherosclerotic vascular calcifications. IMPRESSION: Age-indeterminate anterior wedge compression fracture of the T12 vertebral body with about 40% height reduction. Mild kyphoscoliosis of the thoracic spine. Mild osteopenia. Moderate spondylosis and degenerative disc space narrowing at multiple levels. Overall there is interval worsening compared to the previous radiograph dated 05/15/2007. Recommend MRI thoracic spine for an optimal evaluation. /[place]
--- NOTE | 2024-11-10 04:25 | HMCIMG ---
EXAM: CR Scoliosis Series, 6 Views. CLINICAL HISTORY: Myelopathy disease. COMPARISON: X-ray scoliosis series dated 05/15/2007 FINDINGS: There is about 8 degrees of dextroscoliosis of the thoracic spine and 7 degrees of levoscoliosis of the lumbar spine. Mildly increased thoracic kyphosis. Age-indeterminate anterior wedge compression fracture of the T12 vertebral body with about 40% height reduction. The remaining vertebral body heights are maintained. Mild osteopenia. Moderate spondylosis and degenerative disc space narrowing at multiple levels. Metal implants in the cervicothoracic and lower lumbar spine. Mild atherosclerotic vascular calcifications. IMPRESSION: There is about 8 degrees of dextroscoliosis of the thoracic spine and 7 degrees of levoscoliosis of the lumbar spine. Mildly increased thoracic kyphosis. Age-indeterminate anterior wedge compression fracture of the T12 vertebral body with about 40% height reduction. Degenerative osseous changes. Overall, there is interval worsening compared to the previous radiograph dated 05/15/2007. Recommend MRI thoracic spine for an optimal evaluation. /[place]
== END | disposition home or self-care (01) ==
LOC: RAH 10:41
PROVIDERS: ATTEND Neurological Surgery
DX: S22.080A Wedge compression fracture of T11-T12 vertebra, initial encounter for closed fracture (principal); M47.12 Other spondylosis with myelopathy, cervical region; M85.88 Other specified disorders of bone density and structure, other site; M47.813 Spondylosis without myelopathy or radiculopathy, cervicothoracic region; M47.815 Spondylosis without myelopathy or radiculopathy, thoracolumbar region; M40.50 Lordosis, unspecified, site unspecified; M43.22 Fusion of spine, cervical region; M25.78 Osteophyte, vertebrae; M40.294 Other kyphosis, thoracic region; M48.03 Spinal stenosis, cervicothoracic region; M48.05 Spinal stenosis, thoracolumbar region; G95.89 Other specified diseases of spinal cord; I70.8 Atherosclerosis of other arteries; X58.XXXA Exposure to other specified factors, initial encounter; Y93.89 Activity, other specified; Y92.89 Other specified places as the place of occurrence of the external cause; Y99.8 Other external cause status
CPT/HCPCS: 72070; 72082; 72125

== ENCOUNTER → 2025-02-26 | Outpatient (CLI) | payer OTHER ==
--- NOTE | 2025-02-26 14:17 | HMCIMG ---
EXAM: CT Cervical Spine Without IV Contrast. CLINICAL HISTORY: Disease of spinal cord, unspecified. TECHNIQUE: Axial computed tomography images of the cervical spine obtained without intravenous contrast. Sagittal and coronal reformatted images were generated. COMPARISON: CT ??? Cervical Spine Without Contrast dated 11/09/2024. FINDINGS: ALIGNMENT: Cervical alignment preserved. Postoperative fusion hardware noted. DEGENERATIVE / POSTOPERATIVE CHANGES: Anterior cervical spine fusion fixation extending from C4 through C7, consistent with prior ACDF ??? on comparison with prior report dated 11/09/2024, hardware position remains stable and intact. Posterior fusion fixation now noted from C2 through C6 with associated posterior laminectomy changes from C3 through C5 ??? on comparison with prior report dated 11/09/2024, represents interval surgical intervention. Posterior paraspinal midline hypodensity extending from posterior epidural space to subcutaneous plane with marginal irregular calcification/hyperdensity ??? may represent postoperative scar or granulation tissue; not seen previously. Severe degenerative changes at the atlanto-axial joint with krishan-odontoid ligamentous thickening ??? on comparison with prior report, progression of degenerative change. 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 progressed from prior study. SOFT TISSUES: Prevertebral soft tissues within normal limits. BONES: No acute fracture or aggressive osseous lesion identified. IMPRESSION: * Stable anterior cervical fusion from C4???C7 with new posterior fusion from C2???C6 and laminectomy changes from C3???C5, indicating interval postoperative status since 11/09/2024. * Posterior paraspinal midline hypodensity with marginal calcifications ??? likely postoperative scar/granulation tissue; correlate clinically. * Progressive severe degenerative changes at the atlanto-axial joint with krishan-odontoid ligamentous thickening. * Worsening multilevel uncovertebral and facet arthropathy from C3???C4 through C6???C7 causing neural foraminal stenosis. * No acute osseous abnormality or hardware complication identified. /[place]
== END | disposition home or self-care (01) ==
LOC: RAH 11:20
PROVIDERS: ATTEND Neurological Surgery
DX: M47.812 Spondylosis without myelopathy or radiculopathy, cervical region (principal); M47.891 Other spondylosis, occipito-atlanto-axial region; M48.02 Spinal stenosis, cervical region; M43.22 Fusion of spine, cervical region; G95.9 Disease of spinal cord, unspecified
CPT/HCPCS: 72125